=== PATIENT | male | born 1970 | race Caucasian/White ===

== ENCOUNTER 2024-11-26 03:40 | Emergency (ER) | payer SELFPAY ==
[~2024-11-26] VITALS: Ht 182.8 cm; Wt 115.9 kg
[2024-11-26] MEDS ORDERED: METFORMIN HYDR500 MG PO (03:42)
[2024-11-26] MEDS ORDERED: HYDROCHLOROTH12.5 M2 PO (03:43)
[2024-11-26] MEDS ORDERED: LOSARTAN POTAS100 M1 PO (03:43)
[2024-11-26] MEDS ORDERED: NORVASC5 MG PO (03:43)
[2024-11-26] MEDS ORDERED: METOPROLOL SUCC25 M2 PO (03:44)
[2024-11-26] MEDS ORDERED: diphenhydrAMINE hydrochloride 50 MG/ML VIAL IV ONE (03:45)
[2024-11-26] MEDS ORDERED: SODIUM CHLORIDE 0.9% 1,000 ML IV ONE (03:45)
[2024-11-26] MEDS ORDERED: Ondansetron Hydrochloride 4 MG/2 ML VIAL IV ONE (03:45)
[2024-11-26] MEDS ORDERED: Ketorolac Tromethamine 30 MG/ML VIAL IV ONE (03:45)
[2024-11-26] MEDS ORDERED: HYDROmorphONE Hydrochloride 1 MG/ML SYR IV ONE (05:00)
== END 2024-11-26 05:22 | disposition home or self-care (01) ==
LOC: ED 03:40
DX: I16.0 Hypertensive urgency (principal); R51.9 Headache, unspecified; H53.8 Other visual disturbances; R20.0 Anesthesia of skin; E11.9 Type 2 diabetes mellitus without complications; Z88.0 Allergy status to penicillin